=== PATIENT | female | born 1980 | race Caucasian/White ===

== ENCOUNTER 2016-09-14 09:50 | Emergency (ER) | payer OTHER ==
[2016-09-14 10:54] VITALS: BP 142/70
--- NOTE | 2016-09-14 11:03 | ERNOTE ---
Back Pain ER HPI Date of Service: 09/14/16 Time Seen by Provider: 09/14/16 09:59 Source: patient Exam Limitations: no limitations Immunizations: IMMUNIZATION HX Immunizations Up to Date Yes History of Influenza Vaccine No Hx Pneumococcal Vaccination No Allergies/Adverse Reactions: Allergies Iodinated Contrast Media - Oral and Allergy (Mild, Verified 09/14/16 09:59) Swelling (Other) tramadol Allergy (Verified 09/14/16 09:59) Home Medications: HOME MEDICATIONS HYDROcodone/ACETAMINOPHEN [[place] 5-325] 1 each PO Q8H PRN #10 tablet 09/14/16 [ Last Taken Unknown] Methocarbamol [Robaxin] 500 mg PO TID PRN #15 tablet 09/14/16 [Last Taken Unknown] Narrative: Patient presents to the ED for low back pain. She relates this is a problem she has had for some time. This pain feels like the pain she had in the past. It has been going on since June. She states in cindi past she was on Hydrocodone and Valium but came off of these for her and never went back on them. She states pain low back. Worse with mending and turning. no trauma. No radicular Sx. No N/T/W. No loss of bowel or bladder control. No fever. No abdominal pain. She requests an x-ray. No falls. This is exactly like prior pain she has had. She relates that this started because she has a new job since June and is now standing all day. Timing: Reports: constant Quality/Severity: Reports: other - can be severe with movement Location of pain: Reports: lower back, no radiation. Denies: radiating to rt thigh/leg, radiating to lf thigh/leg Activities at Onset: Reports: none Recent Injury?: Reports: no Possible Precipitating Factor: Reports: none Modifying Factors - (Improves): Reports: other - rest Modifying Factors - (Worsens): Reports: movement to right, movement to left, movement flexion Associated Symptoms: Denies: fever/chills, constipation/incontinence, nausea/ vomiting, problems urinating, difficulty walking, numbess/weakness in legs Prior Treament: Denies: recently seen Review of Systems - Review of Systems Constitutional: Absent: fever Respiratory: Absent: shortness of breath Cardiology: Absent: chest pain Gastrointestinal/Abdominal: Absent: abdominal pain Genitourinary: Absent: dysuria - Patient's Past Medical History Patient History - Medical: Anxiety Patient History - Cardiac/Respiratory: No pertinent hx Patient History - Cancer: Cervical Patient History - Surgical Procedures: Appendectomy, , Tubal Ligation Patient History - Other: None - Social History Living Situations: home Abuse History: No History of abuse Psych History: Hx of Anxiety Alcohol Use: none Drug Use: none - Immunizations Immunizations Up to Date: Yes Hx Pneumococcal Vaccination: No History of Influenza Vaccine: No Physical Exam - Physical Exam General Appearance: Present: alert, no apparent distress Head Exam: Present: normal inspection, no evidence of injury Eye Exam: Normal inspection: bilateral, PERRL: bilateral Ears, Nose, Throat: Present: normal ENT inspection Neck: Present: normal inspection Respiratory: Present: no respiratory distress, normal breath sounds, lungs clear Cardiovascular/Chest: Present: regular rate, rhythm Gastrointestinal/Abdominal: Present: normal bowel sounds, nontender, soft Back Exam: Present: normal inspection, no CVA tenderness, no vertebral tenderness, other - There is low back paraspinal muscular tendenress L5 region. No localizing point vertebral tenderness.. Absent: CVA tenderness (R), CVA tenderness (L) Extremity Exam: Present: normal inspection, normal range of motion Neurological Exam: Present: alert, normal mood/affect, no motor/sensory deficits , other - Gait intact. Full LE strength and sensation. Patellar tendon reflexes equal and symmetric. No evidence of neuro deficit or cauda equina syndrome. Skin Exam: Present: normal color, warm/dry. Absent: skin rash ED Progress - Vital Signs Patient's Vital Signs:: I have reviewed the patient's vital signs. Vital Signs: Vital Signs 09/14/16 09:55 Temperature 36.8 C Pulse Rate 86 Respiratory 12 Rate Blood Pressure 145/63 O2 Sat by Pulse 97 Oximetry - X-Ray X-Ray #1 X-Ray: lumbosacral Interpretation: Interp. by me X-ray Comments: No concurrent radiology reads here. My review is no acute process. Pending radiology read in am. - Progress/Reassessment Chief Complaint: Back Pain Progress Note-Subjective: 09/14/16 11:02 Nothing to suggest infectious process (osteo, diskitis, abscess, etc). No neuro deficits, fracture or cauda-equina syndrome. She can take hydrocodone. Will cover with this and robaxin with close f/u and consideration of outpatient MRI. I discussed warning signs and reasons to return as well as the need for close f/u. Departure Clinical Impression: Low back pain - Departure Disposition: Home self-care Condition: Stable Instructions: Back Pain, Adult Additional Instructions: Rest. No driving with medications. I would like you to be seen by a primary doctor within 3 days, call Thursday. Return here for fever, increased pain, numbness, tingling, weakness, trouble with bowel or bladder control of if your condition worsens or changes in any way. Referrals: Charlie Nettles ARNP [Primary Care Provider] - Prescriptions: HYDROcodone/ACETAMINOPHEN [[place] 5-325] 1 each PO Q8H PRN #10 tablet PRN Reason: Pain Methocarbamol [Robaxin] 500 mg PO TID PRN #15 tablet PRN Reason: Pain
== END 2016-09-14 10:58 | disposition home or self-care (01) ==
LOC: ER 09:50
DX: M54.5 Low back pain (principal); Z85.41 Personal history of malignant neoplasm of cervix uteri

== ENCOUNTER 2016-11-13 15:48 | Emergency (ER) | payer OTHER ==
[2016-11-13 15:56] VITALS: BP 144/82
[2016-11-13] MEDS ORDERED: ORPHENADRINE CITRATE 30 MG/ML VIAL IM ONE (16:10)
[2016-11-13] MEDS ORDERED: KETOROLAC TROMETHAMINE 60 MG/2 ML VIAL IM ONE ×2 (16:10→16:19)
--- NOTE | 2016-11-13 16:18 | ERNOTE ---
Back Pain ER HPI Time Seen by Provider: 11/13/16 16:02 Immunizations: IMMUNIZATION HX Immunizations Up to Date Yes History of Influenza Vaccine No Hx Pneumococcal Vaccination No Allergies/Adverse Reactions: Allergies Iodinated Contrast- Oral and IV Dye Allergy (Mild, Verified 11/13/16 15:56) Swelling (Other) tramadol Allergy (Verified 11/13/16 15:56) Home Medications: HOME MEDICATIONS Cyclobenzaprine HCl [Flexeril] 10 mg PO TID PRN 11/13/16 [Last Taken Unknown] Gabapentin 100 mg PO TID #90 capsule 11/13/16 [Last Taken Unknown] Methocarbamol [Robaxin] 500 mg PO BID #20 tablet 11/13/16 [Last Taken Unknown] - Patient's Past Medical History Patient History - Medical: Anxiety, Chronic Pain Patient History - Cardiac/Respiratory: No pertinent hx Patient History - Cancer: Cervical Patient History - Surgical Procedures: Appendectomy, , Tubal Ligation Patient History - Other: None - Social History Living Situations: home Abuse History: No History of abuse Psych History: Hx of Anxiety Smoking Status: Current every day smoker Have you smoked in the past 12 months: Yes Alcohol Use: none Drug Use: none - Immunizations Immunizations Up to Date: Yes Hx Pneumococcal Vaccination: No History of Influenza Vaccine: No ED Progress - Date and Time Seen: Date and Time: 11/13/16 16:09 Feel that pt. gabapentin dosage is inappropriate for her and that pt. does better on robaxin so will start pt on 100mg TID of Gabapentin and robaxin PRN - Vital Signs Patient's Vital Signs:: I have reviewed the patient's vital signs. Vital Signs: Vital Signs 11/13/16 15:53 Temperature 36.8 C Pulse Rate 91 Respiratory 14 Rate Blood Pressure 144/82 O2 Sat by Pulse 100 Oximetry - Progress/Reassessment Chief Complaint: Back Pain Departure Clinical Impression: Degenerative disc disease, lumbar Low back pain Qualifiers: Chronicity: chronic Back pain laterality: midline Sciatica presence: with sciatica Sciatica laterality: sciatica of left side Qualified Code(s): M54.42 - Lumbago with sciatica, left side; G89.29 - Other chronic pain - Departure Disposition: Home self-care Condition: Good Instructions: Chronic Back Pain Additional Instructions: Please follow up with primary provider in 2-3 days. Referrals: Charlie Nettles ARNP [Primary Care Provider] - Prescriptions: Gabapentin 100 mg PO TID #90 capsule Methocarbamol [Robaxin] 500 mg PO BID #20 tablet
[2016-11-13] MEDS ORDERED: ORPHENADRINE CITRATE 30 MG/ML VIAL ONE (16:19)
--- NOTE | 2016-11-13 16:29 | ERNOTE ---
Back Pain ER HPI Date of Service: 11/13/16 Presenting Symptoms: hx chronic back pain Time Seen by Provider: 11/13/16 16:02 Source: patient Exam Limitations: no limitations Immunizations: IMMUNIZATION HX Immunizations Up to Date Yes History of Influenza Vaccine No Hx Pneumococcal Vaccination No Allergies/Adverse Reactions: Allergies Iodinated Contrast- Oral and IV Dye Allergy (Mild, Verified 11/13/16 15:56) Swelling (Other) tramadol Allergy (Verified 11/13/16 15:56) Home Medications: HOME MEDICATIONS Cyclobenzaprine HCl [Flexeril] 10 mg PO TID PRN 11/13/16 [Last Taken Unknown] Gabapentin 100 mg PO TID #90 capsule 11/13/16 [Last Taken Unknown] Methocarbamol [Robaxin] 500 mg PO BID #20 tablet 11/13/16 [Last Taken Unknown] Narrative: Pt. comes in with c/o chronic low back pain worsening for three days. Pt. states that she was started on gabapentin three months ago for her chronic back pain and states that it was working until three days ago. Pt. also states that she was switched to flexeril from robaxin at this time and states that the robaxin worked better.Pt. denies any SOB, CP, NVD, incontinence, recent injury or numbness and tingling. Review of Systems - Review of Systems Constitutional: Present: no symptoms reported. Absent: recent illness, fever, chills, diaphoresis, weakness, malaise EYE: Present: no symptoms reported ENT: Present: no symptoms reported Respiratory: Present: no symptoms reported. Absent: shortness of breath, cough , wheezing Cardiology: Present: no symptoms reported. Absent: chest pain, palpitations, edema Gastrointestinal/Abdominal: Present: no symptoms reported. Absent: nausea, vomiting, diarrhea Genitourinary: Present: no symptoms reported. Absent: pain Musculoskeletal: Present: back pain, muscle pain - R buttock and leg Skin: Present: no symptoms reported. Absent: rash, lesions, lumps, change in hair/nails Neurological: Present: no symptoms reported Endocrine: Present: no symptoms reported All Other Systems: All systems neg except as marked - Patient's Past Medical History Patient History - Medical: Anxiety, Chronic Pain Patient History - Cardiac/Respiratory: No pertinent hx Patient History - Cancer: Cervical Patient History - Surgical Procedures: Appendectomy, , Tubal Ligation Patient History - Other: None - Social History Living Situations: home Abuse History: No History of abuse Psych History: Hx of Anxiety Smoking Status: Current every day smoker Have you smoked in the past 12 months: Yes Alcohol Use: none Drug Use: none - Immunizations Immunizations Up to Date: Yes Hx Pneumococcal Vaccination: No History of Influenza Vaccine: No Physical Exam - Physical Exam General Appearance: Present: wd/wn, alert, no apparent distress Head Exam: Present: normal inspection, no evidence of injury Eye Exam: Normal inspection: bilateral Neck: Present: normal inspection, nontender Respiratory: Present: no respiratory distress, normal breath sounds, no accessory muscle use, chest nontender Cardiovascular/Chest: Present: regular rate, rhythm, no murmur, normal peripheral pulses Gastrointestinal/Abdominal: Present: normal bowel sounds, nontender Back Exam: Present: normal range of motion, no CVA tenderness, vertebral tenderness - L3/L4 Extremity Exam: Present: normal inspection, non-tender, normal range of motion, no edema Neurological Exam: Present: alert, oriented, normal mood/affect, no motor/ sensory deficits Skin Exam: Present: normal color, warm/dry Lymphatic Exam: Present: no adenopathy ED Progress - Date and Time Seen: Date and Time: 11/13/16 16:28 Feel that pt. pain is not well controlled as her Gabapentin is not the appropriate dosage so will increase this and start back on Robaxin. Reviewed previous xrays and as there is no recent injury feel that there is no need to repeat these. - Vital Signs Patient's Vital Signs:: I have reviewed the patient's vital signs. Vital Signs: Vital Signs 11/13/16 15:53 Temperature 36.8 C Pulse Rate 91 Respiratory 14 Rate Blood Pressure 144/82 O2 Sat by Pulse 100 Oximetry - Progress/Reassessment Chief Complaint: Back Pain Departure Clinical Impression: Degenerative disc disease, lumbar Low back pain Qualifiers: Chronicity: chronic Back pain laterality: midline Sciatica presence: with sciatica Sciatica laterality: sciatica of left side Qualified Code(s): M54.42 - Lumbago with sciatica, left side - Departure Disposition: Home self-care Condition: Good Instructions: Chronic Back Pain Additional Instructions: Please follow up with primary provider in 2-3 days. Referrals: Charlie Nettles ARNP [Primary Care Provider] - Prescriptions: Gabapentin 100 mg PO TID #90 capsule Methocarbamol [Robaxin] 500 mg PO BID #20 tablet
== END 2016-11-13 16:29 | disposition home or self-care (01) ==
LOC: ER 15:48
DX: M51.36 Other intervertebral disc degeneration, lumbar region (principal); M54.42 Lumbago with sciatica, left side; Z85.41 Personal history of malignant neoplasm of cervix uteri; F17.200 Nicotine dependence, unspecified, uncomplicated